=== PATIENT | female | born 1990 | race Two or more races ===

== ENCOUNTER 2021-07-20 08:53 | Emergency (ER) | payer SELFPAY ==
[~2021-07-20] VITALS: Ht 162.6 cm; Wt 90.7 kg
[2021-07-20 09:07] VITALS: BP 131/83
[2021-07-20] MEDS ORDERED: TDAP [DIPH/PERTUSSIS/TET] 0.5 ML VIAL IM ONE ×2 (09:30→09:41)
[2021-07-20] MEDS ORDERED: ACETAMINOPHEN 325 MG TABLET PO ONE (09:30)
[2021-07-20] MEDS ORDERED: AMOX/CLAVULANATE 875 MG TABLET PO ONE (09:30)
[2021-07-20] MEDS ORDERED: LIDOCAINE /MPF 1% VIAL 5 ML VIAL ONE (09:39)
[2021-07-20] MEDS ORDERED: ACETAMINOPHEN ES 500 MG TABLET ONE (09:41)
[2021-07-20] MEDS ORDERED: AMOX/CLAVULANATE 875 MG TABLET ONE (09:41)
[2021-07-20] MEDS ORDERED: IBUP-1953 PO (10:20)
[2021-07-20] MEDS ORDERED: AMOX-430 PO (10:20)
== END 2021-07-20 10:47 | disposition home or self-care (01) ==
LOC: ER 09:02
DX: S61.210A Laceration without foreign body of right index finger without damage to nail, initial encounter (principal); Z98.890 Other specified postprocedural states; W54.0XXA Bitten by dog, initial encounter; Y93.89 Activity, other specified; Y92.89 Other specified places as the place of occurrence of the external cause; Y99.8 Other external cause status
CPT/HCPCS: 12001; 73130; 90471; 90715; 99283; A6403 ×2; J3490

== ENCOUNTER 2021-07-22 16:41 | Emergency (ER) | payer SELFPAY ==
[~2021-07-22] VITALS: Ht 162.6 cm; Wt 90.7 kg
[~2021-07-22 16:41] MED LIST: AMOX-430 PO; IBUP-1953 PO
[2021-07-22 16:50] VITALS: BP 116/72
--- NOTE | 2021-07-22 17:00 | NUR ---
PT HERE for wound checked s/p dog bit on 07/20/21 with suture intact no draining sl hyacinth seen by Stephanie ( martell pPA ) PAIN to clean and dress
--- NOTE | 2021-07-22 17:43 | NUR ---
d/c instraction given to pt fally and verblized understood d/c home dressing intact and dry on rt thump
== END 2021-07-22 17:57 | disposition home or self-care (01) ==
LOC: ER 16:42
DX: S61.210D Laceration without foreign body of right index finger without damage to nail, subsequent encounter (principal); Z98.890 Other specified postprocedural states; W54.0XXD Bitten by dog, subsequent encounter

== ENCOUNTER 2021-07-30 10:58 | Emergency (ER) | payer MEDICAID ==
[~2021-07-30] VITALS: Ht 162.6 cm; Wt 90.7 kg
--- NOTE | 2021-07-30 11:20 | NUR ---
CAME IN FOR R INDEX FINGER WOUND CHECK
[2021-07-30 11:22] VITALS: BP 125/74
--- NOTE | 2021-07-30 12:43 | NUR ---
Patient discharged to home in stable condition. Written and verbal after care instructions given. Patient verbalizes understanding of instruction. Pt ambulatory with a steady gait
== END 2021-07-30 12:44 | disposition home or self-care (01) ==
LOC: ER 11:04
DX: S61.210D Laceration without foreign body of right index finger without damage to nail, subsequent encounter (principal); Z48.02 Encounter for removal of sutures; Z98.86 Personal history of breast implant removal; Z79.1 Long term (current) use of non-steroidal anti-inflammatories (NSAID); Z79.899 Other long term (current) drug therapy; W54.0XXD Bitten by dog, subsequent encounter

== ENCOUNTER 2021-08-11 23:09 | Emergency (ER) | payer MEDICAID ==
[~2021-08-11] VITALS: Ht 162.6 cm; Wt 90.7 kg
[2021-08-11 23:42] VITALS: BP 109/83
[2021-08-11] MEDS ORDERED: MUPI15CR TP (23:58)
--- NOTE | 2021-08-12 00:07 | NUR ---
Patient discharged to home in stable condition. Written and verbal after care instructions given. Patient verbalizes understanding of instruction. Pt ambulatory with a steady gait
== END 2021-08-12 00:08 | disposition home or self-care (01) ==
LOC: ER 23:17
DX: S61.210D Laceration without foreign body of right index finger without damage to nail, subsequent encounter (principal); Z48.02 Encounter for removal of sutures; Z85.3 Personal history of malignant neoplasm of breast; Z79.899 Other long term (current) drug therapy; W54.0XXD Bitten by dog, subsequent encounter